=== PATIENT | male | born 1990 | race African-American/Black ===

== ENCOUNTER → 2021-01-28 | Day surgery (SDC) | payer OTHER ==
[~2021-01-28] MED LIST: OXYCODONE HCL 55 MG PO; ZYRTEC10 M4 PO
--- NOTE | 2021-01-29 11:02 | OP ---
[address] [address] OPERATIVE REPORT Name: ANTONIA LANDAVERDE Room: [facility]#: [id number] Admission: 01/28/21 Attend Phys: Katiuska Jiang Discharge: Date of : 86 Report #: [id number] THIS REPORT FOR: cc: MARGOTH - Chante family physician/PCP MARGOTH - No family physician/PCP Abe Sullivan DO ~ DICTATED BY: Nicholas Carcamo DO DATE OF SERVICE: 01/28/2021 PREOPERATIVE DIAGNOSIS: Appendicitis. POSTOPERATIVE DIAGNOSIS: Subacute appendicitis. SURGEON: Abe Sullivan DO COMPENSATOR WORKER: Nicholas Carcamo, PGY5 OPERATION PERFORMED: Laparoscopic appendectomy. ANESTHESIA: General, local. ESTIMATED BLOOD LOSS: 10. SPECIMEN: Appendix. COMPLICATIONS: None. INDICATIONS: The patient is a 30-year-old male with a history of right lower quadrant pain over the last several days. He presented to the Emergency Department and was discharged home. A CT showed a dilated appendix tip. He followed up with us in clinic and he was continuing to have right lower quadrant pain. He was informed of the risks and benefits of laparoscopic appendectomy with risks including but not limited to bleeding, infection, bowel injury, bladder injury and open procedure. He voiced understanding of these risks and decided to proceed with surgery. DESCRIPTION OF PROCEDURE: After informed consent was obtained, the patient was brought to the operating room and placed in supine position. SCDs were on and running. Preoperative antibiotics were given. General anesthesia was administered with an ET tube. Bilateral transversus abdominis plane blocks were placed by anesthesia. The patient was prepped and draped in the usual sterile fashion. A surgical pause was held to confirm proper patient and procedure. A previous infraumbilical incision was elevated with 2 Adson's and incised with a 15 blade. Dissection was carried down to the fascia using [place] [address] OPERATIVE REPORT Name: ANTONIA LANDAVERDE Room: [facility]#: [id number] Admission: 01/28/21 Attend Phys: Katiuska Jiang Discharge: Date of : 86 Report #: [id number] S retractors. Fascia was elevated with 2 Kochers and incised using cautery. Peritoneum was bluntly entered using a finger. A 0 Vicryl stay sutures were placed on either side of the fascia. A 12 mm Den trocar was introduced. The abdomen was insufflated. The patient was positioned head down and left side down. Two additional 5 mm ports in the left lower quadrant and in the suprapubic region were placed under direct visualization. Blunt graspers were used to reflect the cecum medially. The appendix was noted to be in the pelvis. The appendix was somewhat hyperemic and the tip of the appendix did appear somewhat more firm than the remainder of the body or base of the appendix. Photographs were taken. There was no other visible abnormalities. The distal 2 feet of small bowel was run without any visible abnormalities. The appendix was then elevated. A [place] tip LigaSure energy device was used to take down the mesoappendix. Once the base was reached, a 45 mm Endo-SEJAL purple load Covidien stapler was fired across the base of the appendix. The appendix was placed within an EndoCatch bag and placed aside. The staple line was inspected and hemostatic and intact. The mesoappendix was hemostatic. The abdomen was briefly desufflated and the staple line and mesoappendix were inspected and remained hemostatic. Ports were removed under direct visualization. The abdomen was completely desufflated. The specimen and Den trocar were removed through the umbilical incision. Previous stay sutures were elevated and a single [id number] using 0 Vicryl was used to close the fascia. Stay sutures were removed. This wound was closed in layered fashion using 3-0 Vicryl, 4-0 Monocryl and remainder of skin was closed using 4-0 Monocryl. Wounds were cleansed and dressed with Dermabond. The patient was emerged from anesthesia and transferred to the PACU in stable condition. All counts were voiced as correct. <ELECTRONICALLY SIGNED> By: Abe Sullivan DO 01/29/21 1102 [id number] 1530Abe Sullivan DO /nt
--- NOTE | 2021-01-31 15:07 | PATH ---
[facility] [address] [place] [address] PATHOLOGY RPT PROCEDURE Name: ANTONIA LANDAVERDE Room: [facility]#: [id number] Admission: 01/28/21 Date of : 86 Discharge: Report #: [id number] Path Case #: [id number] [facility] Accession Number: [id number] . 01 Material submitted: . appendix - APPENDIX . 01 Clinical history: . LAPAROSCOPIC APPENDECTOMY APPENDICITIS SUB ACUTE APPENDICITIS . 01 Diagnosis: Appendix "appendix, appendectomy": - Acute and subacute appendicitis. (SHA:kalyan; 01/31/2021) [facility] 01/31/2021 1041 Local . 01 Electronically signed: . Niranjan Davis MD, Pathologist NPI- [id number] . 01 Gross description: . Fixative: Formalin Labeled: Appendix Appendix length: 9.5 cm Appendix diameter: Up to 1.1 cm Mesoappendix: 2.0 cm Proximal margin: Stapled Serosa: Pale turner, glistening with moderate vasculature Cut surface: Patent lumen Luminal diameter: Up to 0.4 cm Perforation: Not identified Lesions/abnormalities: None identified . Proximal margin and bisected tip in cassette A1. Additional field support representative cross-sections in cassette A2. (CAA; 01/29/2021) QAC/QA 01/29/2021 1654 Local . 01 Pathologist provided ICD-10: K35.80 . 01 CPT . 754970 Specimen Comment: A courtesy copy of this report has been sent to [phone] Specimen Comment: Report sent to Performed at: [address] [place] [address] PATHOLOGY RPT PROCEDURE Name: ANTONIA LANDAVERDE Room: [facility]#: [id number] Admission: 01/28/21 Date of : 86 Discharge: Report #: [id number] Path Case #: [id number] [facility] [address], [place] [id number] MD Niranjan Davis MD Phone: [phone]
== END | disposition home or self-care (01) ==
LOC: M.SUR 11:50
PROVIDERS: ATTEND Surgery
DX: K35.80 Unspecified acute appendicitis (principal); K36 Other appendicitis; Z20.822 Contact with and (suspected) exposure to COVID-19